=== PATIENT | female | born 1945 | race Asian ===

== ENCOUNTER 2018-01-17 10:56 | Inpatient (IN) | payer MEDICARE, BC ==
[2018-01-17 12:12] LABS: ADD MAN DIFF? NO
[2018-01-17] MEDS: ALBUTEROL 0.5% (NEB) 2.5 MG/0.5 ML AMP INH ×2 (12:13→13:42)
[2018-01-17] MEDS: IPRATROPIUM (NEB) 0.5 MG/2.5 ML AMP INH ×2 (12:13→13:42)
[2018-01-17 12:17] LABS: ABNORMAL IP MESSAGE 1; BASOPHILS % 0.3 % (0.0-2.0); EOSINOPHILS % 0.2 % (0.0-7.0); HEMATOCRIT 41.2 % (37.0-47.0); HEMOGLOBIN 13.5 g/dl (12.0-16.0); LYMPHOCYTES # 0.6 10^3/ul (0.8-2.9); MEAN CORPUSCULAR HEMOGLOBIN 30.2 pg (29.0-33.0); MEAN CORPUSCULAR HGB CONC 32.8 g/dl (32.0-37.0); MEAN CORPUSCULAR VOLUME 92.2 fl (82.0-101.0); MEAN PLATELET VOLUME 8.9 fl (7.4-10.4); MONOCYTE # 0.1 10^3/ul (0.3-0.9); MONOCYTES % 1.4 % (0.0-11.0); NEUTROPHIL # 5.2 10^3/ul (1.6-7.5); NEUTROPHILS % 87.6 % (39.0-77.0); PLATELET COUNT 244 10^3/UL (140-415); RED BLOOD COUNT 4.47 10^6/ul (4.20-5.40); RED CELL DISTRIBUTION WIDTH 12.5 % (11.5-14.5)
[2018-01-17 12:17] LABS: WHITE BLOOD COUNT 5.9 10^3/ul (4.8-10.8)
[2018-01-17 12:18] LABS: POSITIVE DIFF @See below
[2018-01-17] MEDS: SOD CHLORIDE 0.9% 1,000 ML IV (12:19)
[2018-01-17] MEDS: METHYLPREDNISOLONE 125 MG INJ IV (12:19)
[2018-01-17 12:35] LABS: INR 0.93; PROTIME 12.6 Sec (11.9-14.9)
[2018-01-17 12:36] LABS: PARTIAL THROMBOPLASTIN TIME 28.6 Sec (23.0-35.0)
[2018-01-17 13:04] LABS: ALANINE AMINOTRANSFERASE 25 IU/L (13-69); ALBUMIN 4.5 g/dl (3.3-4.9); ALBUMIN/GLOBULIN RATIO 1.55; ALKALINE PHOSPHATASE 83 IU/L (42-121); ANION GAP 9 (5-13); ASPARTATE AMINO TRANSFERASE 37 IU/L (15-46); BILIRUBIN,INDIRECT 0.4 mg/dl (0-1.1); BILIRUBIN,TOTAL 0.4 mg/dl (0.2-1.3); BLOOD UREA NITROGEN 10 mg/dl (7-20); CALCIUM 9.4 mg/dl (8.4-10.2); CARBON DIOXIDE 31 mmol/L (21-31); CHLORIDE 97 mmol/L (97-110); CREATINE KINASE 46 IU/L (23-200); CREATININE 0.51 mg/dl (0.44-1.00); GLUCOSE 114 mg/dl (70-220); POTASSIUM 4.3 mmol/L (3.5-5.1); SODIUM 137 mmol/L (135-144); TOTAL PROTEIN 7.4 g/dl (6.1-8.1)
[2018-01-17 13:14] LABS: B-TYPE NATRIURETIC PEPTIDE 61 PG/ML (0-125); CK INDEX 1.6; CK-MB 0.74 ng/ml (0.0-2.4); TROPONIN-I < 0.012 ng/ml (0.000-0.120)
[2018-01-17] MEDS ORDERED: ONDANSETRON 4 MG INJ IV (13:30)
[2018-01-17] MEDS ORDERED: ACETAMINOPHEN 325 MG TAB PO (13:30)
[2018-01-17] MEDS: DEXTROSE 5%-0.225% NACL 1,000 ML IV (15:42)
[2018-01-17] MEDS: CEFTRIAXONE 1 GM/50 ML (PMX) 50 ML IVPB (15:50)
[2018-01-17] MEDS: AZITHROMYCIN 500MG/NS (PMX) 250 ML IVPB (16:32)
[2018-01-17] MEDS: PROMETHAZINE/CODEINE 5ML CUP PO (16:32)
[2018-01-17] MEDS: ALBUTEROL 0.083% (NEB) 2.5 MG/3 ML AMP HHN ×2 (17:58→20:20)
[2018-01-17] MEDS: ATORVASTATIN 20 MG TAB PO (22:01)
[2018-01-17] MEDS: METHYLPREDNISOLONE 40 MG INJ IV (22:01)
[2018-01-17] MEDS: ZOLPIDEM 5 MG TAB PO (22:05)
[2018-01-18] MEDS: PROMETHAZINE/CODEINE 5ML CUP PO ×3 (01:02→15:51)
[2018-01-18] MEDS: ALBUTEROL 0.083% (NEB) 2.5 MG/3 ML AMP HHN ×7 (01:34→21:01)
[2018-01-18] MEDS: PANTOPRAZOLE (EC) 40 MG TAB PO (05:20)
[2018-01-18] MEDS: METHYLPREDNISOLONE 40 MG INJ IV ×3 (05:21→20:47)
[2018-01-18 08:33] LABS: ADD MAN DIFF? NO
[2018-01-18 08:41] LABS: HEMATOCRIT 36.8 % (37.0-47.0); HEMOGLOBIN 11.9 g/dl (12.0-16.0); LYMPHOCYTES # 0.7 10^3/ul (0.8-2.9); LYMPHOCYTES % 8.4 % (15.0-51.0); MEAN CORPUSCULAR HGB CONC 32.3 g/dl (32.0-37.0); MEAN CORPUSCULAR VOLUME 92.7 fl (82.0-101.0); MEAN PLATELET VOLUME 9.2 fl (7.4-10.4); MONOCYTE # 0.2 10^3/ul (0.3-0.9); MONOCYTES % 1.9 % (0.0-11.0); NEUTROPHIL # 7.4 10^3/ul (1.6-7.5); NEUTROPHILS % 89.3 % (39.0-77.0); PLATELET COUNT 221 10^3/UL (140-415); RED BLOOD COUNT 3.97 10^6/ul (4.20-5.40); RED CELL DISTRIBUTION WIDTH 12.7 % (11.5-14.5)
[2018-01-18 08:41] LABS: WHITE BLOOD COUNT 8.3 10^3/ul (4.8-10.8)
[2018-01-18 09:03] LABS: ANION GAP 10 (5-13); BLOOD UREA NITROGEN 7 mg/dl (7-20); CALCIUM 8.9 mg/dl (8.4-10.2); CARBON DIOXIDE 26 mmol/L (21-31); CHLORIDE 105 mmol/L (97-110); CREATININE 0.48 mg/dl (0.44-1.00); GLUCOSE 131 mg/dl (70-220); POTASSIUM 3.8 mmol/L (3.5-5.1); SODIUM 141 mmol/L (135-144)
[2018-01-18] MEDS: DEXTROSE 5%-0.225% NACL 1,000 ML IV (11:28)
[2018-01-18] MEDS: NACL 3% FOR INHALATION 15 ML NEBU NEB (13:30)
[2018-01-18] MEDS: CEFTRIAXONE 1 GM/50 ML (PMX) 50 ML IVPB (14:24)
[2018-01-18] MEDS: AZITHROMYCIN 500MG/NS (PMX) 250 ML IVPB (15:41)
[2018-01-18] MEDS: ATORVASTATIN 20 MG TAB PO (20:47)
[2018-01-18] MEDS: ZOLPIDEM 5 MG TAB PO (23:10)
[2018-01-19] MEDS: METHYLPREDNISOLONE 40 MG INJ IV ×3 (06:08→20:35)
[2018-01-19] MEDS: PANTOPRAZOLE (EC) 40 MG TAB PO (06:08)
[2018-01-19 06:17] LABS: ADD MAN DIFF? NO
[2018-01-19 06:34] LABS: BASOPHILS % 0.1 % (0.0-2.0); HEMOGLOBIN 12.2 g/dl (12.0-16.0); LYMPHOCYTES # 0.8 10^3/ul (0.8-2.9); LYMPHOCYTES % 7.2 % (15.0-51.0); MEAN CORPUSCULAR HEMOGLOBIN 30.1 pg (29.0-33.0); MEAN CORPUSCULAR VOLUME 91.4 fl (82.0-101.0); MEAN PLATELET VOLUME 9.2 fl (7.4-10.4); MONOCYTE # 0.4 10^3/ul (0.3-0.9); MONOCYTES % 3.5 % (0.0-11.0); NEUTROPHIL # 10.1 10^3/ul (1.6-7.5); NEUTROPHILS % 88.7 % (39.0-77.0); PLATELET COUNT 226 10^3/UL (140-415); RED BLOOD COUNT 4.05 10^6/ul (4.20-5.40); RED CELL DISTRIBUTION WIDTH 13.2 % (11.5-14.5)
[2018-01-19 06:34] LABS: WHITE BLOOD COUNT 11.4 10^3/ul (4.8-10.8)
[2018-01-19 07:04] LABS: ANION GAP 11 (5-13); BLOOD UREA NITROGEN 11 mg/dl (7-20); CALCIUM 9.1 mg/dl (8.4-10.2); CARBON DIOXIDE 29 mmol/L (21-31); CHLORIDE 101 mmol/L (97-110); CREATININE 0.47 mg/dl (0.44-1.00); GLUCOSE 120 mg/dl (70-220); SODIUM 141 mmol/L (135-144)
[2018-01-19 07:09] LABS: T4 (THYROXINE) 7.5 ug/dl (5.5-11.0)
[2018-01-19 08:32] LABS: ERYTHROCYTE SEDIMENTATION RATE 17 mm/Hr (0-30)
[2018-01-19] MEDS: ALBUTEROL 0.083% (NEB) 2.5 MG/3 ML AMP HHN ×3 (09:40→20:22)
[2018-01-19] MEDS: CEFTRIAXONE 1 GM/50 ML (PMX) 50 ML IVPB (15:54)
[2018-01-19] MEDS: PROMETHAZINE/CODEINE 5ML CUP PO (15:58)
[2018-01-19] MEDS: ENOXAPARIN 30 MG/0.3 ML SYG SC (16:00)
[2018-01-19] MEDS: AZITHROMYCIN 500MG/NS (PMX) 250 ML IVPB (16:46)
[2018-01-19] MEDS: BENZONATATE 100 MG CAP PO (20:35)
[2018-01-19] MEDS: ATORVASTATIN 20 MG TAB PO (20:35)
[2018-01-19] MEDS: ZOLPIDEM 5 MG TAB PO (23:19)
[2018-01-20] MEDS: PANTOPRAZOLE (EC) 40 MG TAB PO (06:02)
[2018-01-20] MEDS: METHYLPREDNISOLONE 40 MG INJ IV ×2 (08:57→20:28)
[2018-01-20] MEDS: BENZONATATE 100 MG CAP PO ×3 (08:57→20:28)
[2018-01-20] MEDS: ENOXAPARIN 30 MG/0.3 ML SYG SC (09:07)
[2018-01-20] MEDS: ALBUTEROL 0.083% (NEB) 2.5 MG/3 ML AMP HHN ×4 (09:16→20:16)
[2018-01-20] MEDS: CEFTRIAXONE 1 GM/50 ML (PMX) 50 ML IVPB (15:50)
[2018-01-20] MEDS: AZITHROMYCIN 500MG/NS (PMX) 250 ML IVPB (17:24)
[2018-01-20] MEDS: ATORVASTATIN 20 MG TAB PO (20:28)
[2018-01-21] MEDS: PANTOPRAZOLE (EC) 40 MG TAB PO (05:54)
[2018-01-21] MEDS: DILTIAZEM 25 MG INJ IV (07:03)
[2018-01-21 07:41] LABS: ADD MAN DIFF? NO
[2018-01-21 07:45] LABS: WHITE BLOOD COUNT 6.3 10^3/ul (4.8-10.8)
[2018-01-21 07:45] LABS: ABNORMAL IP MESSAGE 1; BASOPHILS % 0.2 % (0.0-2.0); HEMATOCRIT 38.7 % (37.0-47.0); HEMOGLOBIN 12.6 g/dl (12.0-16.0); LYMPHOCYTES # 0.6 10^3/ul (0.8-2.9); LYMPHOCYTES % 8.9 % (15.0-51.0); MEAN CORPUSCULAR HEMOGLOBIN 30.1 pg (29.0-33.0); MEAN CORPUSCULAR HGB CONC 32.6 g/dl (32.0-37.0); MEAN CORPUSCULAR VOLUME 92.6 fl (82.0-101.0); MEAN PLATELET VOLUME 9.5 fl (7.4-10.4); MONOCYTE # 0.6 10^3/ul (0.3-0.9); MONOCYTES % 9.3 % (0.0-11.0); NEUTROPHIL # 5.1 10^3/ul (1.6-7.5); PLATELET COUNT 214 10^3/UL (140-415); RED BLOOD COUNT 4.18 10^6/ul (4.20-5.40); RED CELL DISTRIBUTION WIDTH 13.2 % (11.5-14.5)
[2018-01-21 07:50] LABS: POSITIVE DIFF @See below
[2018-01-21] MEDS ORDERED: DILTIAZEM-D5W 125MG/125ML DRIP 125 ML IV (08:00)
[2018-01-21 08:08] LABS: ANION GAP 5 (5-13); BLOOD UREA NITROGEN 11 mg/dl (7-20); CALCIUM 9.1 mg/dl (8.4-10.2); CARBON DIOXIDE 33 mmol/L (21-31); CHLORIDE 101 mmol/L (97-110); CREATININE 0.45 mg/dl (0.44-1.00); GLUCOSE 106 mg/dl (70-220); MAGNESIUM 2.6 mg/dl (1.7-2.5); POTASSIUM 4.3 mmol/L (3.5-5.1); SODIUM 139 mmol/L (135-144)
[2018-01-21] MEDS: ALBUTEROL 0.083% (NEB) 2.5 MG/3 ML AMP HHN ×4 (08:12→20:49)
[2018-01-21 08:17] LABS: TROPONIN-I < 0.012 ng/ml (0.000-0.120)
[2018-01-21] MEDS ORDERED: DILTIAZEM 25 MG INJ IV (08:30)
[2018-01-21] MEDS: BENZONATATE 100 MG CAP PO ×3 (08:36→20:14)
[2018-01-21] MEDS: METHYLPREDNISOLONE 40 MG INJ IV (08:36)
[2018-01-21] MEDS: ENOXAPARIN 30 MG/0.3 ML SYG SC (08:50)
[2018-01-21] MEDS: PROMETHAZINE/CODEINE 5ML CUP PO (09:35)
[2018-01-21] MEDS: predniSONE 20 MG TAB PO (14:40)
[2018-01-21] MEDS: CEFTRIAXONE 1 GM/50 ML (PMX) 50 ML IVPB (14:40)
[2018-01-21] MEDS: AZITHROMYCIN 500MG/NS (PMX) 250 ML IVPB (16:31)
[2018-01-21] MEDS: ATORVASTATIN 20 MG TAB PO (20:14)
[2018-01-22] MEDS: PANTOPRAZOLE (EC) 40 MG TAB PO (05:27)
[2018-01-22] MEDS: DILTIAZEM (CD) 120 MG CAP PO (08:26)
[2018-01-22] MEDS: ASPIRIN (EC) 81 MG TAB PO (08:26)
[2018-01-22] MEDS: predniSONE 20 MG TAB PO (08:26)
[2018-01-22] MEDS: BENZONATATE 100 MG CAP PO ×3 (08:26→20:20)
[2018-01-22] MEDS: ENOXAPARIN 30 MG/0.3 ML SYG SC (08:29)
[2018-01-22] MEDS: ALBUTEROL 0.083% (NEB) 2.5 MG/3 ML AMP HHN ×4 (09:31→20:31)
[2018-01-22] MEDS: CEFTRIAXONE 1 GM/50 ML (PMX) 50 ML IVPB (14:55)
[2018-01-22] MEDS: PROMETHAZINE/CODEINE 5ML CUP PO (15:00)
[2018-01-22] MEDS: AZITHROMYCIN 500MG/NS (PMX) 250 ML IVPB (16:43)
[2018-01-22] MEDS: ATORVASTATIN 20 MG TAB PO (20:20)
[2018-01-23] MEDS: PROMETHAZINE/CODEINE 5ML CUP PO (04:24)
[2018-01-23] MEDS: PANTOPRAZOLE (EC) 40 MG TAB PO (05:40)
[2018-01-23] MEDS: predniSONE 20 MG TAB PO (08:17)
[2018-01-23] MEDS: BENZONATATE 100 MG CAP PO ×3 (08:17→21:26)
[2018-01-23] MEDS: DILTIAZEM (CD) 120 MG CAP PO (08:17)
[2018-01-23] MEDS: ASPIRIN (EC) 81 MG TAB PO (08:17)
[2018-01-23] MEDS: ENOXAPARIN 30 MG/0.3 ML SYG SC (08:40)
[2018-01-23] MEDS: ALBUTEROL 0.083% (NEB) 2.5 MG/3 ML AMP HHN ×4 (09:13→20:19)
[2018-01-23] MEDS: CEFTRIAXONE 1 GM/50 ML (PMX) 50 ML IVPB (15:12)
[2018-01-23] MEDS: AZITHROMYCIN 500MG/NS (PMX) 250 ML IVPB (16:36)
[2018-01-23] MEDS: ATORVASTATIN 20 MG TAB PO (21:25)
[2018-01-23] MEDS: MELATONIN 5 MG TABLET PO (22:47)
[2018-01-24] MEDS: PANTOPRAZOLE (EC) 40 MG TAB PO (05:42)
[2018-01-24] MEDS: ALBUTEROL 0.083% (NEB) 2.5 MG/3 ML AMP HHN ×4 (08:19→21:37)
[2018-01-24] MEDS: DILTIAZEM (CD) 120 MG CAP PO (08:24)
[2018-01-24] MEDS: ASPIRIN (EC) 81 MG TAB PO (08:24)
[2018-01-24] MEDS: BENZONATATE 100 MG CAP PO ×3 (08:24→21:00)
[2018-01-24] MEDS: predniSONE 20 MG TAB PO (08:24)
[2018-01-24] MEDS: ENOXAPARIN 30 MG/0.3 ML SYG SC (08:31)
[2018-01-24] MEDS: CEFTRIAXONE 1 GM/50 ML (PMX) 50 ML IVPB (13:52)
[2018-01-24] MEDS: ATORVASTATIN 20 MG TAB PO (20:54)
[2018-01-24] MEDS: PROMETHAZINE/CODEINE 5ML CUP PO (20:54)
[2018-01-24] MEDS: MELATONIN 5 MG TABLET PO ×2 (21:00→22:33)
[2018-01-25] MEDS: PANTOPRAZOLE (EC) 40 MG TAB PO (06:38)
[2018-01-25] MEDS: ASPIRIN (EC) 81 MG TAB PO (08:10)
[2018-01-25] MEDS: DILTIAZEM (CD) 120 MG CAP PO (08:10)
[2018-01-25] MEDS: BENZONATATE 100 MG CAP PO ×2 (08:10→20:53)
[2018-01-25] MEDS: predniSONE 20 MG TAB PO (08:11)
[2018-01-25] MEDS: ENOXAPARIN 30 MG/0.3 ML SYG SC (08:14)
[2018-01-25] MEDS: ALBUTEROL 0.083% (NEB) 2.5 MG/3 ML AMP HHN ×3 (08:27→21:41)
[2018-01-25] MEDS: PROMETHAZINE/CODEINE 5ML CUP PO (15:10)
[2018-01-25] MEDS: ATORVASTATIN 20 MG TAB PO (20:53)
[2018-01-25] MEDS: MELATONIN 5 MG TABLET PO (20:53)
[2018-01-25] MEDS ORDERED: SPECIAL NON-STANDARD MEDICATION PO (21:00)
[2018-01-26] MEDS: ALBUTEROL 0.083% (NEB) 2.5 MG/3 ML AMP HHN ×3 (02:27→08:13)
[2018-01-26] MEDS: PANTOPRAZOLE (EC) 40 MG TAB PO (06:13)
[2018-01-26] MEDS: BENZONATATE 100 MG CAP PO (09:09)
[2018-01-26] MEDS: ASPIRIN (EC) 81 MG TAB PO (09:09)
[2018-01-26] MEDS: DILTIAZEM (CD) 120 MG CAP PO (09:10)
[2018-01-26] MEDS: predniSONE 10 MG TAB PO (09:10)
[2018-01-26] MEDS: PROMETHAZINE/CODEINE 5ML CUP PO (10:39)
== END 2018-01-26 11:23 | disposition home or self-care (01) | DRG 202 ==
LOC: TEL 01-18 22:06 → E/R 10:56 → TEL 13:28
DX: J45.51 Severe persistent asthma with (acute) exacerbation (principal); Z68.1 Body mass index [BMI] 19.9 or less, adult; R63.6 Underweight; E78.5 Hyperlipidemia, unspecified; K21.9 Gastro-esophageal reflux disease without esophagitis; I10 Essential (primary) hypertension; I48.0 Paroxysmal atrial fibrillation; J47.9 Bronchiectasis, uncomplicated; Z86.11 Personal history of tuberculosis
CPT/HCPCS: 36415; 71045; 71260; 80048; 80053; 82550; 82553; 83735; 83880; 84436; 84443; 84484; 85025; 85610; 85651; 85730; 87070; 93005; 93306; 94640; 94644; 94645; 94664; 96374; 99291-25